=== PATIENT | female | born 2000 | race Caucasian/White ===

== ENCOUNTER 2024-06-15 09:30 | Emergency (ER) | payer OTHER, SELFPAY ==
[2024-06-15 09:41] VITALS: BP 124/70; PULSE 87; RESP 13; TEMP 36.8; O2SAT 96; BMI 29.8
[2024-06-15 09:46] VITALS: O2SAT 9
[2024-06-15 09:47] VITALS: BP 124/70; PULSE 84; O2SAT 98
--- NOTE | 2024-06-15 09:49 | DI.US.S_ITS ---
PROCEDURE: US OB <= 14 WEEKS FETUS INDICATIONS: CRAMPING OUTSIDE/PRIOR DATING DATA: Last menstrual period (LMP): March 19, 2024. LMP-based estimated date of delivery (GREYSON): December 24, 2024. First dating scan (date and location): May 20, 2024. Estimated date of delivery (GREYSON) from first dating scan: December 26, 2024. The calculations are made using the ultrasound GREYSON of December 26, 2024. TECHNIQUE: Real-time scanning was performed of the fetus and maternal pelvic organs, with image documentation. Endovaginal scanning was also performed to better visualize the fetus and maternal ovaries. COMPARISON: [facility], US, US OB < 14 WEEKS, 05/20/2024, 15:45. FINDINGS: Embryo: Single living intrauterine identified. [place]-rump length measures 5.7 centimeters. Expected gestational age based on prior ultrasound 12 weeks 4 days with estimated gestational age of 12 weeks 2 days in the current study. rate measured 118 beats per minute. Maternal organs: Ovaries not visualized due to bowel gas and cannot be evaluated. IMPRESSION: Single living intrauterine gestation with appropriate interval growth. Dictated by: Joselin Gasca MD, PhD on 06/15/2024 at 10:51 Approved by: Joselin Gasca MD, PhD on 06/15/2024 at 10:53
[2024-06-15 10:16] LABS: Add Manual Diff / Slide Review NO; Basophils Absolute Auto 0 /uL (0-100); Basophils Percent Auto 0.1 % (0-2); Eosinophils Absolute Auto 100 /uL (0-450); Eosinophils Percent Auto 1.9 % (2-4); Hematocrit 35.3 % (36-46); Hemoglobin 12.5 g/dL (12.0-16.0); Lymphocytes Absolute Auto 1700 /uL (1100-4500); Lymphocytes Percent Auto 22.4 % (25-40); Mean Corpuscular HGB Conc 35.5 % (30-36); Mean Corpuscular Hemoglobin 32.4 PG (26-34); Mean Corpuscular Volume 91.3 fL (80-100); Monocytes Absolute Auto 400 /uL (0-900); Monocytes Percent Auto 5.8 % (3-14); Neutrophils Absolute Auto 5300 /uL (1500-7000); Neutrophils Percent Auto 69.8 % (50-75); Platelet Count 197 X10^3/uL (150-400); Red Blood Cell Count 3.87 X10^6/uL (4.0-5.2); Red Cell Distribution Width 12.5 % (11.6-14.8); White Blood Cell Count 7.6 X10^3/uL (4.5-11.0)
--- NOTE | 2024-06-15 10:22 | ED_ITS ---
HPI - General Chief complaint: Vaginal Bleeding Stated complaint: 12 weeks cramping Time Seen by Provider: 06/15/24 10:07 Source: patient Mode of arrival: Ambulatory Limitations: no limitations History of Present Illness HPI Narrative: Patient is a 24-year-old female with no significant past medical history comes into the ED for pelvic cramping states it started yesterday. This is her 1st , states she is about 12 weeks , has been taking has her 1st appointment on at [facility] with her OBGYN. Denies any vaginal bleeding or discharge. She denies any trauma or falls. Not on any blood thinners. States that the cramping is intermittent, nothing making it better or worse. States that since this was her 1st and wanted to make sure everything was ?okay. No other symptoms Related Data Allergies Allergy/AdvReac Type Severity Reaction Status Date / Time amoxicillin Allergy Verified 06/15/24 09:50 Review of Systems Review of Systems Narrative: HEENT: Denies headache, eye drainage, eye irritation, head trauma, sore throat, voice change Cardiovascular: Denies any chest pain, palpitations, shortness of breath, tachycardia Respiratory: Denies any shortness of breath, cough, wheeze, stridor GI/: Denies any abdominal pain, nausea, vomiting, diarrhea, bright red blood per rectum, melanotic stools, urinary frequency, urinary retention, dysuria, hematuria, positive pelvic cramping MSK: Denies any joint pain, muscle pains, swelling Skin: Denies any rashes, lesions, discoloration Neuro: Denies any headache, lightheadedness, dizziness, fainting, weakness Psych: Denies SI/HI Exam Narrative Exam Narrative: General: Cooperative, comfortable, well-developed, not in acute distress HEENT: Normocephalic, atraumatic, PERRLA, normal sclera, eyelids normal, Neck: Active full range of motion, atraumatic Chest: Normal to inspection, negative crepitus, no overlying erythema ecchymosis Respiratory: Normal respiratory effort, not in acute respiratory distress, clear to auscultation bilaterally negative cough, wheeze, tachypnea, rhonchi, rales Cardiology: Regular rate rhythm negative gallop, murmur, rubs GI/: Normal to inspection, soft, nonrigid, no tenderness to palpation, exam deferred MSK: Full range of active range of motion of all 4 extremities, atraumatic Skin: No rashes lesions noted Neuro: Alert awake oriented x3, moves all 4 extremities spontaneously, cranial nerves intact, able to answer all questions appropriately follows commands appropriately Psych: Cooperative, negative suicidal or homicidal ideations Initial Vital Signs Initial Vital Signs: Vital Signs Temperature 98.2 F 06/15/24 09:41 Pulse Rate 87 06/15/24 09:41 Respiratory Rate 13 06/15/24 09:41 Blood Pressure 124/70 06/15/24 09:41 Pulse Oximetry 96 06/15/24 09:41 Oxygen Delivery Method Room Air 06/15/24 09:41 Course Orders Ordered: ED Orders 06/15/24 09:49 US OB <= 14 weeks fetus Stat 06/15/24 10:00 Complete Blood Count AUTO DIFF Stat Comprehensive Metabolic Panel Stat HCG Quantitative /Beta subunit Stat Type and Screen Stat Vital Signs Vital signs: Vital Signs - 8 hr 06/15/24 09:41 06/15/24 09:46 06/15/24 09:47 Temperature 98.2 F Pulse Rate 87 84 Respiratory Rate 13 Blood Pressure 124/70 Pulse Oximetry 96 9 L 98 Oxygen Delivery Method Room Air 06/15/24 09:47 06/15/24 10:33 Temperature Pulse Rate 74 Respiratory Rate Blood Pressure 124/70 Pulse Oximetry 98 Oxygen Delivery Method MDM - OB/Uterine Contractions Differential Diagnosis Differential diagnosis: Likely normal delivery at term, hemorrhage and pre-eclampsia Lab Data 06/15/24 10:00 06/15/24 10:00 Labs: Lab Results 06/15/24 Range/Units 10:00 WBC 7.6 (4.5-11.0) X10^3/uL RBC 3.87 L (4.0-5.2) X10^6/uL Hgb 12.5 (12.0-16.0) g/dL Hct 35.3 L (36-46) % MCV 91.3 (80-100) fL MCH 32.4 (26-34) PG MCHC 35.5 (30-36) % RDW 12.5 (11.6-14.8) % Plt Count 197 (150-400) X10^3/uL Neut % (Auto) 69.8 (50-75) % Lymph % (Auto) 22.4 L (25-40) % [place] % (Auto) 5.8 (3-14) % Eos % (Auto) 1.9 L (2-4) % Baso % (Auto) 0.1 (0-2) % Neut # (Auto) 5300 (6192-9257) /uL Lymph # (Auto) 1700 (5031-0510) /uL [place] # (Auto) 400 (0-900) /uL Eos # (Auto) 100 (0-450) /uL Baso # (Auto) 0 (0-100) /uL Sodium 134 L (137-145) mmol/L Potassium 3.8 (3.4-5.1) mmol/L Chloride 106 (98-107) mmol/L Carbon Dioxide 21 L (22-32) mmol/L BUN 5 L (7-17) mg/dL Creatinine 0.53 (0.52-1.04) mg/dL Estimated GFR > 60 (>60) mL/min BUN/Creatinine Ratio 9.4 (6-22) Glucose 94 (70-100) mg/dL Calcium 8.8 (8.4-10.2) mg/dL Total Bilirubin 0.5 (0.2-1.3) mg/dL AST 19 (14-36) IU/L ALT 10 (<35) IU/L Alkaline Phosphatase 55 (38-126) U/L Total Protein 6.6 (6.3-8.2) g/dL Albumin 4.0 (3.5-5.0) g/dL Globulin 2.6 (1.7-4.1) g/dL Albumin/Globulin Ratio 1.5 (1.0-2.8) HCG, Quant 18906 mIU/mL Blood Type O Positive Antibody Screen Negative Urine Dip Bedside Urine Glucose Negative Bedside Urine Bilirubin - Negative Bedside Urine Ketone - Negative Urine Specific [place] 1.015 Bedside Urine Occult Blood - Negative Bedside Urine pH 7.5 Bedside Urine Protein - Negative Bedside Urine Urobilinogen - Negative Bedside Urine Nitrite - Negative Bedside Urine Leukocytes - Negative Esterase Imaging Data Ultrasound OB: Radiologist's Impression: PROCEDURE: US OB <= 14 WEEKS FETUS INDICATIONS: CRAMPING OUTSIDE/PRIOR DATING DATA: Last menstrual period (LMP): March 19, 2024. LMP-based estimated date of delivery (GREYSON): December 24, 2024. First dating scan (date and location): May 20, 2024. Estimated date of delivery (GREYSON) from first dating scan: December 26, 2024. The calculations are made using the ultrasound GREYSON of December 26, 2024. TECHNIQUE: Real-time scanning was performed of the fetus and maternal pelvic organs, with image documentation. Endovaginal scanning was also performed to better visualize the fetus and maternal ovaries. COMPARISON: [facility], US, US OB < 14 WEEKS, 05/20/2024, 15:45. FINDINGS: Embryo: Single living intrauterine identified. [place]-rump length measures 5.7 centimeters. Expected gestational age based on prior ultrasound 12 weeks 4 days with estimated gestational age of 12 weeks 2 days in the current study. rate measured 118 beats per minute. Maternal organs: Ovaries not visualized due to bowel gas and cannot be evaluated. IMPRESSION: Single living intrauterine gestation with appropriate interval growth. MDM Narrative Medical decision making narrative: Patient is a 24-year-old female no past medical history 0 0, presenting for pelvic pain, patient with out signs of asymptomatic bacteriuria, ultrasound normal, patient with OBGYN appointment this 06/17/2024 at [facility]. Patient was given strict return precautions, she verbalized understanding of this and agrees to being discharged home with outpatient follow up Discharge Plan Departure Referrals: Provider,Kristin SERNA [Primary Care Provider] -
[2024-06-15 10:24] LABS: Alanine Aminotransferase 10 IU/L (<35); Albumin Globulin Ratio 1.5 (1.0-2.8); Alkaline Phosphatase 55 U/L (38-126); Aspartate Aminotransferase 19 IU/L (14-36); BUN Creatinine Ratio 9.4 (6-22); Bilirubin Total 0.5 mg/dL (0.2-1.3); Blood Urea Nitrogen 5 mg/dL (7-17); Calcium 8.8 mg/dL (8.4-10.2); Carbon Dioxide 21 mmol/L (22-32); Chloride 106 mmol/L (98-107); Estimated Glomerular Filt Rate > 60 mL/min (>60); Globulin 2.6 g/dL (1.7-4.1); Glucose 94 mg/dL (70-100); HEMOLYSIS < 15 (0-50); Potassium 3.8 mmol/L (3.4-5.1); Sodium 134 mmol/L (137-145); Total Protein 6.6 g/dL (6.3-8.2)
[2024-06-15 10:33] VITALS: PULSE 74; O2SAT 98
[2024-06-15 11:13] LABS: HCG Quantitative /Beta subunit 95165 mIU/mL
[2024-06-15 11:30] VITALS: BP 116/58; PULSE 74; O2SAT 97
== END 2024-06-15 11:30 | disposition home or self-care (01) ==
PROVIDERS: Emergency Provider Student in an Organized Health Care Education/Training Program
DX: O20.0 Threatened abortion (principal); Z3A.12 12 weeks gestation of pregnancy
CPT/HCPCS: 36415; 76801; 80053; 81003; 84702; 85025; 86850; 86900; 86901; 99282; 99284